=== PATIENT | female | born 1945 | race Caucasian/White ===

== ENCOUNTER 2018-11-12 16:49 | Inpatient (IN) | payer MEDICARE, OTHER ==
[2018-11-12 18:21] LABS: % EOSINOPHILS 2.6 % (0.0-5.0); % LYMPHOCYTES 24.3 % (20.0-50.0); % MONOCYTES 7.9 % (2.0-10.0); % NEUTROPHILS 65.2 % (40.0-80.0); EOSINOPHILE ABSOLUTE 0.2 Th/cmm (0.1-0.4); HEMATOCRIT 37.5 % (41.0-60); HEMOGLOBIN 12.2 gm/dL (12-16); LYMPHOCYTE ABSOLUTE 1.6 Th/cmm (1.5-3.0); MEAN CELL VOLUME 93.3 fl (81-100); MEAN CORPUSCULAR HEMOGLOBIN 30.4 pg (27.0-31.0); MEAN CORPUSCULAR HGB CONC 32.6 pg (28.0-36.0); MEAN PLATELET VOLUME 7.5 fl; MONOCYTE ABSOLUTE 0.5 Th/cmm (0.3-1.0); NEUTROPHILE ABSOLUTE 4.3 Th/cmm (1.8-8.0); PLATELET COUNT 353 Th/cmm (150-400); RED BLOOD COUNT 4.02 Mil/cmm (3.80-5.20); RED CELL DISTRIBUTION WIDTH 13.2 % (11.5-20.0); WHITE BLOOD COUNT 6.6 Th/cmm (4.8-10.8)
--- NOTE | 2018-11-12 18:25 | ED Physician Chart ---
ED Chief Complaint/HPI - Patient Information Date Seen:: 11/12/18 Time Seen:: 17:30 Chief Complaint:: striking out Allergies:: Allergies Allergy/AdvReac Type Severity Reaction Status Date / Time No Known Allergies Allergy Verified 11/12/18 17:18 Vitals:: Vital Signs - 8 hr 11/12/18 17:18 Temp 98.6 F HR 76 RR 16 BP 102/69 O2 Sat % 95 Historian:: Medical Records Review:: Nurse's Note Reviewed, Transfer documents Reviewed ED Review of Systems - Review of Systems General/Constitutional: No fever ED Past Medical History - Past Medical History Past Medical History: PUD/GERD (diarrhea), Arthritis Family Medical History - Family Member Mother History Unknown: Yes ED Physical Exam - Physical Examination General/Constitutional: Non-toxic appearing (combative requiring ativan IM) Head: Atraumatic Eyes: Lids, conjuctiva normal Skin: Nl inspection ENMT: External ears, nose nl Neck: Nontender, No nuchal rigidity Respiratory: Clear to Auscultation Cardio Vascular: RRR GI: No tenderness/rebounding/guarding Extremities: normal strength in all extremities Neuro/Psych: No focal deficits ED Assessment - Assessment General Assessment: psyche break ED Septic Shock - . Is Septic Shock (SBP<90, OR Lactate>4 mmol\L) present?: No - <6hrs of presentation: Vital Signs: Vital Signs - 8 hr 11/12/18 17:18 Temp 98.6 F HR 76 RR 16 BP 102/69 O2 Sat % 95 ED Reassessment (Disposition) - Patient Disposition Discharge/Transfer:: Acute Care w/in this hosp (admitted for psy eval and management)
[2018-11-12 18:35] LABS: ALB/GLOB RATIO 1.2 (1.0-1.8); ALBUMIN 3.7 gm/dL (3.7-5.3); ALKALINE PHOSPHATASE 41 U/L (34-104); ANION GAP 12.3 (7.0-16.0); BILIRUBIN,TOTAL 0.2 mg/dL (0.3-1.0); BUN - UREA NITROGEN 27 mg/dL (7-25); CALCIUM SERUM 9.3 mg/dL (8.6-10.3); CARBON DIOXIDE 24.8 mEq/L (21.0-31.0); CHLORIDE 105 mEq/L (98-107); CREATININE - SERUM 0.7 mg/dL (0.6-1.2); GLUCOSE 122 mg/dL (70-105); POTASSIUM SERUM 4.1 mEq/L (3.5-5.1); SGOT 15 U/L (13-39); SGPT/ALT 13 U/L (7-52); SODIUM SERUM 138 mEq/L (136-145); TOTAL PROTEIN,SERUM 6.7 gm/dL (6.0-8.3)
[2018-11-12 20:33] VITALS: BP 107/58
[2018-11-12] MEDS ORDERED: Magnesium Hydroxide (MOM) 30 mL UDC PO PRN (20:43)
[2018-11-12] MEDS ORDERED: Maalox 30 mL Cup PO PRN (20:43)
[2018-11-12] MEDS: Acetaminophen 500 MG TAB PO SCH (23:05)
[2018-11-13] MEDS ORDERED: MELATONIN PO SCH (09:00)
[2018-11-13] MEDS ORDERED: PYRIDOXINE HCL PO SCH (09:00)
[2018-11-13] MEDS: Multivitamin Tab PO SCH (09:07)
[2018-11-13] MEDS: Acetaminophen 500 MG TAB PO SCH ×3 (09:08→21:08)
[2018-11-13 09:13] LABS: CHOLESTEROL 200 mg/dL (<200); HDL -HIGH DENSITY LIPOPROTEIN 51 mg/dL (23-92); TRIGLYCERIDES 71 mg/dL (<150)
--- NOTE | 2018-11-13 11:10 | History and Physical ---
History of Present Illness - HPI Chief Complaint: 73 y/o female patient was brought into ER due to Striking out. HPI: 73 y/o female patient was admitted into [facility] due to Striking out. Patient has history of PUD,GERD and Arthritis. Patient had an ER assessment and a complete workup was done. Patient was diagnosed with Acute Psychosis. Patient will have a Psych evaluation and management. I will follow patient, treat and monitor patient. Patient will continue present treatment plan as ordered. Vital Signs: Last Vital Signs Temp 98.8 F 11/13/18 06:39 Pulse 72 11/13/18 06:39 Resp 19 11/13/18 08:00 BP 110/62 11/13/18 06:39 Pulse Ox 96 11/13/18 06:39 Past Medical History Cardiovascular: Report: No Pertinent Hx Pulmonary: Report: No Pertinent Hx DRAG OUT MAN: Report: Other (Acute psychosis-striking out.) GI: Report: GERD, Peptic Ulcer Psych: Report: Psychosis Musculoskeletal: Report: Other (Arthritis.) Rheumatologic: Report: No pertinent Hx Infectious Disease: Report: No Pertinent Hx Family Medical History - Family Member Mother History Unknown: Yes Social History Smoke: No Alcohol: None Drugs: None Lives: Jail Domestic Violence: Negative Health Maintenance Health Maintenance: Other (see chart.) - Medications Home Medications: Home Medication Medication Instructions Recorded Type Acetaminophen [Pain Relief] 500 mg PO TID 11/12/18 History Divalproex Sodium [Depakote] 125 mg PO BID 11/12/18 History Loperamide [Imodium] 2 mg PO DAILY PRN 11/12/18 History Melatonin/Pyridoxine HCl (B6) 1 each PO BID 11/12/18 History [Melatonin 5 mg Tablet] OLANZapine [ZyPREXA] 5 mg PO BID 11/12/18 History Trazodone HCl 50 mg PO HS 11/12/18 History Other Medications: Please see medication reconciliation sheet. - Allergies Allergies/Adverse Reactions: Allergies Allergy/AdvReac Type Severity Reaction Status Date / Time No Known Allergies Allergy Verified 11/12/18 17:18 Review of Systems - Review of Systems Review of Systems: 73 y/o female patient has been striking out. patient has hx of Gerd/PUD and Arthritis. Constitutional: Report: No Significant Eyes: Report: No Significant ENT: Report: No Significant Respiratory: Report: No Significant Cardiovascular: Report: No Significant Gastrointestinal: Report: Other (GERD/PUD.) Genitourinary: Report: No Significant Musculoskeletal: Report: Other (Arthritis.) Neurological: Report: No Significant Physical Exam - Physical Exam HEENT: Report: Ears Nose Throat within normal limits Neck: Report: Within normal limits Cardiovascular Systems: Report: +s1/s2 noted, Regular, Rate and Rhythm Respiratory: Report: Breath Sounds are within normal limits Abdomen: Report: Non-tender to palpation Back: Report: Inspection of back is within normal limits. Extremities: Report: Non-tender to palpation. Skin: Report: Color of skin is within normal limits Neuro/Psych: Report: Other (Striking out.) - Lab Results All Lab Results last 24 hours: Laboratory Results - last 24 hr 11/12/18 11/12/18 11/13/18 18:15 18:15 08:15 WBC 6.6 RBC 4.02 Hgb 12.2 Hct 37.5 L MCV 93.3 MCH 30.4 MCHC Differential 32.6 RDW 13.2 Plt Count 353 MPV 7.5 Neutrophils % 65.2 Lymphocytes % 24.3 Monocytes % 7.9 Eosinophils % 2.6 Basophils % 0.0 Sodium 138 Potassium 4.1 Chloride 105 Carbon Dioxide 24.8 Anion Gap 12.3 BUN 27 H Creatinine 0.7 Est GFR ( Amer) TNP Est GFR (Non-Af Amer) TNP BUN/Creatinine Ratio 38.6 Glucose 122 H Calcium 9.3 Total Bilirubin 0.2 L AST 15 ALT 13 Alkaline Phosphatase 41 Total Protein 6.7 Albumin 3.7 Globulin 3.0 Albumin/Globulin Ratio 1.2 Triglycerides 71 Cholesterol 200 LDL Cholesterol Direct 143 HDL Cholesterol 51 Valproic Acid 11/13/18 08:15 WBC RBC Hgb Hct MCV MCH MCHC Differential RDW Plt Count MPV Neutrophils % Lymphocytes % Monocytes % Eosinophils % Basophils % Sodium Potassium Chloride Carbon Dioxide Anion Gap BUN Creatinine Est GFR ( Amer) Est GFR (Non-Af Amer) BUN/Creatinine Ratio Glucose Calcium Total Bilirubin AST ALT Alkaline Phosphatase Total Protein Albumin Globulin Albumin/Globulin Ratio Triglycerides Cholesterol LDL Cholesterol Direct HDL Cholesterol Valproic Acid 19.8 L - Assessment Assessment: PUD. GERD. Arthritis. Acute Psychosis. - Plan Plan: Plan Continuation of care. Psych eval/management requested. Monitor Labs. Continue present meds as directed. Monitor Diet/Nutritional support. Pain Management. Safety precaution. Supportive care. Fall precaution. Will Monitor patient and continue current treatment plan as ordered.
--- NOTE | 2018-11-14 09:39 | Psychiatric Evaluation ---
DATE OF SERVICE: 11/12/2018 AGE: 73. SEX: Female. PHYSICIAN: Dr. Calderon. CHIEF COMPLAINT: Agitation and striking out behavior. HISTORY OF PRESENT ILLNESS: The patient is a 73-year-old female with history of what seems to be bipolar disorder. [facility]. The patient has been combative and has been agitated and striking out at peers and staff in the long-term. She also has been confused. The patient also has been preoccupied. The patient was transferred to the hospital. The patient is still confused and agitated. She is also easily irritable and angry. She also restless and she needed lots of redirections. PAST PSYCHIATRIC HISTORY: The patient has history of what seems to be bipolar disorder. PAST MEDICAL HISTORY: The patient has arthritis and gastroesophageal reflux disease. SOCIAL HISTORY: The patient lives in [facility]. The patient denies any alcohol or any street drug use. ALLERGIES: No known allergies. MENTAL STATUS EXAMINATION: The patient appears her stated age. Anxious. Sad affect. In a depressed mood. Thought processes mainly goal directed. The patient denies hallucinations or delusions and she denies any thoughts of suicide or homicide. The patient is alert and oriented to the situation and place and person. Impaired immediate and recent, but intact remote memories and she remembered her date. Poor insight and poor judgment. ASSESSMENT: PRIMARY DIAGNOSES: Bipolar disorder, manic episode, severe, with psychotic features. TREATMENT PLAN: Continue to monitor her behavior and condition closely. Also, we will start individual psychotherapy. Also, we will monitor psychotropic medications. Also, we will get Depakote blood level. ESTIMATED LENGTH OF STAY: 5-7 days. THE PATIENT'S STRENGTHS AND WEAKNESSES: The patient strength is not clear at this time. Weaknesses is ineffective coping and her agitation and poor impulse control. AFTER DISCHARGE PLAN: Outpatient treatment and followup will continue as an outpatient. CRITERIA FOR DISCHARGE: The patient will not be psychotic and will stabilize psychotropic medications and will establish outpatient treatment plans. [facility]# [id number]
[2018-11-14] MEDS: Acetaminophen 500 MG TAB PO SCH ×3 (09:52→21:25)
[2018-11-14] MEDS: Multivitamin Tab PO SCH (09:55)
--- NOTE | 2018-11-14 21:11 | Progress Notes ---
DATE: SUBJECTIVE: Chart reviewed and the patient interviewed. Also discussed the patient's condition with the staff and reviewed records and labs. The patient is still confused and is still easily agitated and needs lots of redirections. She also is restless and she is trying to get out of bed, in spite of staff instructions and directions to stay in bed. The patient also is still in angry mood and also seems to be actively responding to stimuli. Otherwise, the patient is compliant with taking Zyprexa and no side effects of Zyprexa. ASSESSMENT: The patient is still agitated and needs close monitoring. TREATMENT PLAN: Continue monitoring her behavior and her condition closely and continue adjusting psychotropic medications and work on behavioral modification. [facility]# [id number]
[2018-11-15] MEDS: Acetaminophen 500 MG TAB PO SCH ×3 (08:38→21:14)
[2018-11-15] MEDS: Multivitamin Tab PO SCH (08:38)
--- NOTE | 2018-11-15 14:50 | Internal Medicine Prog Note ---
Internal Medicine Subjective - Subjective Service Date: 11/15/18 Patient seen and examined:: with staff Patient is:: awake, verbal, agitated Patient Complaints of:: other (Aggressive.) Per staff patient has:: no adverse event, no episodes of fall Internal Medicine Objective - Results Result Diagrams: 11/12/18 18:15 11/12/18 18:15 Recent Labs: Laboratory Last Values WBC 6.6 Th/cmm (4.8-10.8) 11/12/18 18:15 RBC 4.02 Mil/cmm (3.80-5.20) 11/12/18 18:15 Hgb 12.2 gm/dL (12-16) 11/12/18 18:15 Hct 37.5 % (41.0-60) L 11/12/18 18:15 MCV 93.3 fl (81-100) 11/12/18 18:15 MCH 30.4 pg (27.0-31.0) 11/12/18 18:15 MCHC Differential 32.6 pg (28.0-36.0) 11/12/18 18:15 RDW 13.2 % (11.5-20.0) 11/12/18 18:15 Plt Count 353 Th/cmm (150-400) 11/12/18 18:15 MPV 7.5 fl 11/12/18 18:15 Neutrophils % 65.2 % (40.0-80.0) 11/12/18 18:15 Lymphocytes % 24.3 % (20.0-50.0) 11/12/18 18:15 Monocytes % 7.9 % (2.0-10.0) 11/12/18 18:15 Eosinophils % 2.6 % (0.0-5.0) 11/12/18 18:15 Basophils % 0.0 % (0.0-2.0) 11/12/18 18:15 Sodium 138 mEq/L (136-145) 11/12/18 18:15 Potassium 4.1 mEq/L (3.5-5.1) 11/12/18 18:15 Chloride 105 mEq/L (98-107) 11/12/18 18:15 Carbon Dioxide 24.8 mEq/L (21.0-31.0) 11/12/18 18:15 Anion Gap 12.3 (7.0-16.0) 11/12/18 18:15 BUN 27 mg/dL (7-25) H 11/12/18 18:15 Creatinine 0.7 mg/dL (0.6-1.2) 11/12/18 18:15 Est GFR ( Amer) TNP 11/12/18 18:15 Est GFR (Non-Af Amer) TNP 11/12/18 18:15 BUN/Creatinine Ratio 38.6 11/12/18 18:15 Glucose 122 mg/dL (70-105) H 11/12/18 18:15 Calcium 9.3 mg/dL (8.6-10.3) 11/12/18 18:15 Total Bilirubin 0.2 mg/dL (0.3-1.0) L 11/12/18 18:15 AST 15 U/L (13-39) 11/12/18 18:15 ALT 13 U/L (7-52) 11/12/18 18:15 Alkaline Phosphatase 41 U/L (34-104) 11/12/18 18:15 Total Protein 6.7 gm/dL (6.0-8.3) 11/12/18 18:15 Albumin 3.7 gm/dL (3.7-5.3) 11/12/18 18:15 Globulin 3.0 gm/dL 11/12/18 18:15 Albumin/Globulin Ratio 1.2 (1.0-1.8) 11/12/18 18:15 Triglycerides 71 mg/dL (<150) 11/13/18 08:15 Cholesterol 200 mg/dL (<200) 11/13/18 08:15 LDL Cholesterol Direct 143 mg/dL (75-193) 11/13/18 08:15 HDL Cholesterol 51 mg/dL (23-92) 11/13/18 08:15 Valproic Acid 19.8 ug/mL (50.0-100.0) L 11/13/18 08:15 - Physical Exam Vitals and I&O: Vital Signs Temp 97.6 F 11/14/18 14:00 Pulse 88 11/14/18 14:00 Resp 18 11/14/18 14:00 BP 158/74 11/14/18 14:00 Pulse Ox 96 11/14/18 14:00 Intake & Output 05/03/2711/15/18 11/15/18 18:59 06:59 18:59 Intake Total 800 60 Balance 800 60 Intake: Oral 800 60 Other: # Voids 4 3 # Bowel Movements 1 Active Medications: Current Medications Acetaminophen (Tylenol Extra Strength) 500 mg PO TID STEVENSON Stop: 01/11/19 20:59 Last Admin: 11/15/18 13:53 Dose: 500 mg Al Hydrox/Mg Hydrox/Simethicone (Maalox) 30 ml PO Q4HR PRN PRN Reason: GI DISTRESS Stop: 01/11/19 20:42 Divalproex Sodium (Depakote Dr) 125 mg PO BID STEVENSON; Protocol Stop: 01/12/19 08:59 Last Admin: 11/15/18 08:38 Dose: 125 mg Loperamide HCl (Imodium) 2 mg PO DAILY PRN PRN Reason: Diarrhea Stop: 01/11/19 20:54 Lorazepam (Ativan) 0.5 mg PO Q4HR PRN; Protocol PRN Reason: Anxiety Stop: 12/12/18 20:42 Magnesium Hydroxide (Milk Of Magnesia) 30 ml PO HS PRN PRN Reason: Constipation Multivitamins/Vitamin C (Theragran) 1 tab PO DAILY STEVENSON Stop: 01/12/19 08:59 Last Admin: 11/15/18 08:38 Dose: 1 tab Olanzapine (Zyprexa) 5 mg PO BID STEVENSON; Protocol Stop: 01/12/19 08:59 Last Admin: 11/15/18 08:38 Dose: 5 mg Trazodone HCl (Desyrel) 50 mg PO HS STEVENSON; Protocol Stop: 01/11/19 20:59 Last Admin: 11/14/18 21:26 Dose: 50 mg Zolpidem Tartrate (Ambien) 5 mg PO HS PRN PRN Reason: Insomnia Stop: 01/11/19 20:42 Physical Exam: 73 y/ patient continues to be aggressive and confused. General: demented, other (confused.) HEENT: NC/AT Neck: Supple Lungs: CTAB Cardiovascular: RRR, Normal S1 Abdomen: soft, non-tender Extremities: clear Neurological: no change Internal Medicine Assmt/Plan - Assessment Assessment: PUD. GERD. Arthritis. Aggressive. Acute Psychosis. - Plan Plan: Plan Continuation of care. Psych management. Monitor Labs. Continue present meds as directed. Monitor Diet/Nutritional support. Pain Management. Safety precaution. Supportive care. Fall precaution. Will Monitor patient and continue current treatment plan as ordered. Nutritional Asmnt/Malnutr-PDOC - Dietary Evaluation Malnutrition Findings (Please click <Entered> for more info): see orders.
--- NOTE | 2018-11-15 22:26 | Progress Notes ---
DATE: 11/15/2018 SUBJECTIVE: Chart was reviewed and the patient interviewed. Also discussed the patient's condition with the staff and reviewed records and labs. The patient is still confused and forgetful. The patient also is easily agitated and easily irritable. The patient also is trying to get out of a truck and exposing herself to dangerous situation and dangers of fall. The patient also still seems to be responding and talking to self. Otherwise, the patient is compliant with taking her medications with no side effects of medications. ASSESSMENT: The patient is still agitated and still can be dangerous to others. TREATMENT PLAN: Continue to monitor her behavior and her condition closely. Also, Depakote blood level that was done upon admission was 19.8, which is below therapeutic level. We will continue same dose and continue to work on her irritability and agitation and continue to follow up. JOB# [id number]
[2018-11-16] MEDS: Acetaminophen 500 MG TAB PO SCH ×3 (08:42→20:46)
[2018-11-16] MEDS: Multivitamin Tab PO SCH (08:43)
--- NOTE | 2018-11-17 02:08 | Progress Notes ---
DATE: 11/16/2018 SUBJECTIVE: Chart was reviewed and the patient interviewed. Also discussed the patient's condition with the staff and reviewed records and labs. The patient is still confused and is still forgetful. The patient also is selectively mute. The patient also is still easily irritable and easily minimizing her treatment. She also is still having mood swings and irritability. Otherwise, the patient continued to need redirections. Depakote blood level that was done on 11/13/2018 came back to be 19.8. ASSESSMENT: The patient is still psychotic and confused. TREATMENT PLAN: Continue to monitor her behavior and condition closely. Also, continue Depakote 125 twice a day and Zyprexa 5 mg twice a day and add trazodone 50 mg at bedtime. Also, continue to monitor Depakote blood level and blood level that was done on 11/13/2018 came back to be 19.8, which is below therapeutic level but will repeat blood level. JOB# [id number]
[2018-11-17] MEDS: Multivitamin Tab PO SCH (09:40)
[2018-11-17] MEDS: Acetaminophen 500 MG TAB PO SCH ×3 (09:40→21:38)
--- NOTE | 2018-11-17 10:06 | Internal Medicine Prog Note ---
Internal Medicine Subjective - Subjective Patient seen and examined:: chart reviewed Patient is:: awake, verbal, agitated, other (pt still psychotic and confused ) Patient Complaints of:: other (Aggressive.) Per staff patient has:: no adverse event, no episodes of fall Internal Medicine Objective - Results Result Diagrams: 11/12/18 18:15 11/12/18 18:15 Recent Labs: Laboratory Last Values WBC 6.6 Th/cmm (4.8-10.8) 11/12/18 18:15 RBC 4.02 Mil/cmm (3.80-5.20) 11/12/18 18:15 Hgb 12.2 gm/dL (12-16) 11/12/18 18:15 Hct 37.5 % (41.0-60) L 11/12/18 18:15 MCV 93.3 fl (81-100) 11/12/18 18:15 MCH 30.4 pg (27.0-31.0) 11/12/18 18:15 MCHC Differential 32.6 pg (28.0-36.0) 11/12/18 18:15 RDW 13.2 % (11.5-20.0) 11/12/18 18:15 Plt Count 353 Th/cmm (150-400) 11/12/18 18:15 MPV 7.5 fl 11/12/18 18:15 Neutrophils % 65.2 % (40.0-80.0) 11/12/18 18:15 Lymphocytes % 24.3 % (20.0-50.0) 11/12/18 18:15 Monocytes % 7.9 % (2.0-10.0) 11/12/18 18:15 Eosinophils % 2.6 % (0.0-5.0) 11/12/18 18:15 Basophils % 0.0 % (0.0-2.0) 11/12/18 18:15 Sodium 138 mEq/L (136-145) 11/12/18 18:15 Potassium 4.1 mEq/L (3.5-5.1) 11/12/18 18:15 Chloride 105 mEq/L (98-107) 11/12/18 18:15 Carbon Dioxide 24.8 mEq/L (21.0-31.0) 11/12/18 18:15 Anion Gap 12.3 (7.0-16.0) 11/12/18 18:15 BUN 27 mg/dL (7-25) H 11/12/18 18:15 Creatinine 0.7 mg/dL (0.6-1.2) 11/12/18 18:15 Est GFR ( Amer) TNP 11/12/18 18:15 Est GFR (Non-Af Amer) TNP 11/12/18 18:15 BUN/Creatinine Ratio 38.6 11/12/18 18:15 Glucose 122 mg/dL (70-105) H 11/12/18 18:15 Calcium 9.3 mg/dL (8.6-10.3) 11/12/18 18:15 Total Bilirubin 0.2 mg/dL (0.3-1.0) L 11/12/18 18:15 AST 15 U/L (13-39) 11/12/18 18:15 ALT 13 U/L (7-52) 11/12/18 18:15 Alkaline Phosphatase 41 U/L (34-104) 11/12/18 18:15 Total Protein 6.7 gm/dL (6.0-8.3) 11/12/18 18:15 Albumin 3.7 gm/dL (3.7-5.3) 11/12/18 18:15 Globulin 3.0 gm/dL 11/12/18 18:15 Albumin/Globulin Ratio 1.2 (1.0-1.8) 11/12/18 18:15 Triglycerides 71 mg/dL (<150) 11/13/18 08:15 Cholesterol 200 mg/dL (<200) 11/13/18 08:15 LDL Cholesterol Direct 143 mg/dL (75-193) 11/13/18 08:15 HDL Cholesterol 51 mg/dL (23-92) 11/13/18 08:15 Valproic Acid 19.8 ug/mL (50.0-100.0) L 11/13/18 08:15 - Physical Exam Vitals and I&O: Vital Signs Temp 97.8 F 11/17/18 05:58 Pulse 77 11/17/18 05:58 Resp 18 11/16/18 20:00 BP 136/75 11/17/18 05:58 Pulse Ox 18 11/17/18 05:58 Active Medications: Current Medications Acetaminophen (Tylenol Extra Strength) 500 mg PO TID STEVENSON Stop: 01/11/19 20:59 Last Admin: 11/17/18 09:40 Dose: 500 mg Al Hydrox/Mg Hydrox/Simethicone (Maalox) 30 ml PO Q4HR PRN PRN Reason: GI DISTRESS Stop: 01/11/19 20:42 Divalproex Sodium (Depakote Dr) 125 mg PO BID STEVENSON; Protocol Stop: 01/12/19 08:59 Last Admin: 11/17/18 09:40 Dose: 125 mg Loperamide HCl (Imodium) 2 mg PO DAILY PRN PRN Reason: Diarrhea Stop: 01/11/19 20:54 Lorazepam (Ativan) 0.5 mg PO Q4HR PRN; Protocol PRN Reason: Anxiety Stop: 12/12/18 20:42 Last Admin: 11/17/18 09:41 Dose: 0.5 mg Magnesium Hydroxide (Milk Of Magnesia) 30 ml PO HS PRN PRN Reason: Constipation Multivitamins/Vitamin C (Theragran) 1 tab PO DAILY STEVENSON Stop: 01/12/19 08:59 Last Admin: 11/17/18 09:40 Dose: 1 tab Olanzapine (Zyprexa) 5 mg PO BID [facility]; Protocol Stop: 01/12/19 08:59 Last Admin: 11/17/18 09:41 Dose: 5 mg Trazodone HCl (Desyrel) 50 mg PO HS STEVENSON; Protocol Stop: 01/11/19 20:59 Last Admin: 11/16/18 20:47 Dose: 50 mg Zolpidem Tartrate (Ambien) 5 mg PO HS PRN PRN Reason: Insomnia Stop: 01/11/19 20:42 Last Admin: 11/16/18 20:47 Dose: 5 mg Physical Exam: 73 y/ patient continues to be aggressive and confused. General: demented, other (confused.) HEENT: NC/AT Neck: Supple Lungs: CTAB Cardiovascular: RRR, Normal S1 Abdomen: soft, non-tender Extremities: clear Neurological: no change Internal Medicine Assmt/Plan - Assessment Assessment: PUD. GERD. Arthritis. Aggressive. Acute Psychosis. - Plan Plan: Plan Continuation of care. Psych management. Monitor Labs. Continue present meds as directed. Monitor Diet/Nutritional support. Pain Management. Safety precaution. Supportive care. Fall precaution. Will Monitor patient and continue current treatment plan as ordered. Nutritional Asmnt/Malnutr-PDOC - Dietary Evaluation Malnutrition Findings (Please click <Entered> for more info): Nutritional Asmnt/Malnutrition Start: 11/16/18 10: 39 Text: Status: Complete Freq: Protocol: Document 11/16/18 10:39 MICHELL (Rec: 11/16/18 10:45 MICHELL JENKINS- [email or web address]) Nutritional Asmnt/Malnutrition Patient General Information Nutritional Screening Moderate Risk Diagnosis Agitation Pertinent Medical Hx/Surgical Hx PUD, GERD, arthritis Subjective Information Per nursing notes, patient selectively mute, anxious, easily agitated. Current Diet Order/ Nutrition Support Pureed Patient / S.O Not Indicated Pertinent Medications maalox, imodium, MOM, Theragran Pertinent Labs (11/12) BUN 27 Nutritional Hx/Data Height 1.68 m Height (Calculated Centimeters) 167.6 Current Weight (lbs) 65.771 kg Weight (Calculated Kilograms) 65.8 Weight (Calculated Grams) 75965.9 [place] Body Weight 130 % [place] Body Weight 111 Body Mass Index (BMI) 23.3 Recent Weight Change No Weight Status Approriate GI Symptoms GI Symptoms Nausea Last BM 11/15 x 1 Difficult in: None Food Allergies No Cultural/Ethnic/Yarsanism Belief none indicated Usual diet at home uknown Skin Integrity/Comment: Earl 17, Intact Current %PO Good (75-100%) Estimated Nutritional Goals BEE in Kcals: Using Current wt Calories/Kcals/Kg 65.9 kg CBW 25-30 kcal/kg Kcals Calculated ~1882-0558 kcal/day Protein: Using Current wt Protein g/k.8-1 gm/kg Protein Calculated ~50-65 gm/day Fluid: ml ~5832-6386 ml/day (1 ml/kcal) Nutritional Problem 1. Problem Problem No nutrition diagnosis at this time Intervention/Recommendation Comments 1. Continue pureed diet as tolerated by patient Expected Outcomes/Goals Expected Outcomes/Goals Oral intake >75% of meals, weight stable, nutrition related labs WNL F/U LR 11/23
--- NOTE | 2018-11-17 23:34 | Progress Notes ---
DATE: SUBJECTIVE: Chart reviewed and the patient interviewed. Also discussed the patient's condition with the staff and reviewed records and labs. The patient is still confused and she is still easily agitated. The patient also still have episodes of hitting herself during self-care. Also, she is still unable to carry on coherent conversation and is still forgetful and rambling. Otherwise, the patient continued to take Depakote with no side effects. ASSESSMENT: The patient is still agitated and confused. TREATMENT PLAN: Continue to monitor her behavior and her condition closely. Also, continue adjusting psychotropic medications and work on behavioral modification. [facility]# [id number]
[2018-11-18] MEDS: Acetaminophen 500 MG TAB PO SCH ×2 (08:16→13:40)
[2018-11-18] MEDS: Multivitamin Tab PO SCH (08:18)
--- NOTE | 2018-11-18 12:30 | Internal Medicine Prog Note ---
Internal Medicine Subjective - Subjective Service Date: 11/18/18 Patient seen and examined:: with staff Patient is:: awake, verbal, agitated, other (pt. is psychotic, easily agitated.) Patient Complaints of:: other (still Aggressive.) Per staff patient has:: no adverse event, no episodes of fall Internal Medicine Objective - Results Result Diagrams: 11/12/18 18:15 11/12/18 18:15 Recent Labs: Laboratory Last Values WBC 6.6 Th/cmm (4.8-10.8) 11/12/18 18:15 RBC 4.02 Mil/cmm (3.80-5.20) 11/12/18 18:15 Hgb 12.2 gm/dL (12-16) 11/12/18 18:15 Hct 37.5 % (41.0-60) L 11/12/18 18:15 MCV 93.3 fl (81-100) 11/12/18 18:15 MCH 30.4 pg (27.0-31.0) 11/12/18 18:15 MCHC Differential 32.6 pg (28.0-36.0) 11/12/18 18:15 RDW 13.2 % (11.5-20.0) 11/12/18 18:15 Plt Count 353 Th/cmm (150-400) 11/12/18 18:15 MPV 7.5 fl 11/12/18 18:15 Neutrophils % 65.2 % (40.0-80.0) 11/12/18 18:15 Lymphocytes % 24.3 % (20.0-50.0) 11/12/18 18:15 Monocytes % 7.9 % (2.0-10.0) 11/12/18 18:15 Eosinophils % 2.6 % (0.0-5.0) 11/12/18 18:15 Basophils % 0.0 % (0.0-2.0) 11/12/18 18:15 Sodium 138 mEq/L (136-145) 11/12/18 18:15 Potassium 4.1 mEq/L (3.5-5.1) 11/12/18 18:15 Chloride 105 mEq/L (98-107) 11/12/18 18:15 Carbon Dioxide 24.8 mEq/L (21.0-31.0) 11/12/18 18:15 Anion Gap 12.3 (7.0-16.0) 11/12/18 18:15 BUN 27 mg/dL (7-25) H 11/12/18 18:15 Creatinine 0.7 mg/dL (0.6-1.2) 11/12/18 18:15 Est GFR ( Amer) TNP 11/12/18 18:15 Est GFR (Non-Af Amer) TNP 11/12/18 18:15 BUN/Creatinine Ratio 38.6 11/12/18 18:15 Glucose 122 mg/dL (70-105) H 11/12/18 18:15 Calcium 9.3 mg/dL (8.6-10.3) 11/12/18 18:15 Total Bilirubin 0.2 mg/dL (0.3-1.0) L 11/12/18 18:15 AST 15 U/L (13-39) 11/12/18 18:15 ALT 13 U/L (7-52) 11/12/18 18:15 Alkaline Phosphatase 41 U/L (34-104) 11/12/18 18:15 Total Protein 6.7 gm/dL (6.0-8.3) 11/12/18 18:15 Albumin 3.7 gm/dL (3.7-5.3) 11/12/18 18:15 Globulin 3.0 gm/dL 11/12/18 18:15 Albumin/Globulin Ratio 1.2 (1.0-1.8) 11/12/18 18:15 Triglycerides 71 mg/dL (<150) 11/13/18 08:15 Cholesterol 200 mg/dL (<200) 11/13/18 08:15 LDL Cholesterol Direct 143 mg/dL (75-193) 11/13/18 08:15 HDL Cholesterol 51 mg/dL (23-92) 11/13/18 08:15 Valproic Acid 19.8 ug/mL (50.0-100.0) L 11/13/18 08:15 - Physical Exam Vitals and I&O: Vital Signs Temp 98 F 11/18/18 06:05 Pulse 94 11/18/18 06:05 Resp 19 11/18/18 06:05 BP 96/60 11/18/18 06:05 Pulse Ox 97 11/18/18 06:05 Intake & Output 11/17/18 11/18/18 11/18/18 18:59 06:59 18:59 Intake Total 120 Balance 120 Intake: Oral 120 Other: # Voids 3 # Bowel Movements 0 Active Medications: Current Medications Acetaminophen (Tylenol Extra Strength) 500 mg PO TID [facility] Stop: 01/11/19 20:59 Last Admin: 11/18/18 08:16 Dose: 500 mg Al Hydrox/Mg Hydrox/Simethicone (Maalox) 30 ml PO Q4HR PRN PRN Reason: GI DISTRESS Stop: 01/11/19 20:42 Divalproex Sodium (Depakote Dr) 125 mg PO BID [facility]; Protocol Stop: 01/12/19 08:59 Last Admin: 11/18/18 08:16 Dose: 125 mg Loperamide HCl (Imodium) 2 mg PO DAILY PRN PRN Reason: Diarrhea Stop: 01/11/19 20:54 Lorazepam (Ativan) 0.5 mg PO Q4HR PRN; Protocol PRN Reason: Anxiety Stop: 12/12/18 20:42 Last Admin: 11/17/18 17:07 Dose: 0.5 mg Magnesium Hydroxide (Milk Of Magnesia) 30 ml PO HS PRN PRN Reason: Constipation Multivitamins/Vitamin C (Theragran) 1 tab PO DAILY [facility] Stop: 01/12/19 08:59 Last Admin: 11/18/18 08:18 Dose: 1 tab Olanzapine (Zyprexa) 5 mg PO BID [facility]; Protocol Stop: 01/12/19 08:59 Last Admin: 11/18/18 08:18 Dose: 5 mg Trazodone HCl (Desyrel) 50 mg PO HS [facility]; Protocol Stop: 01/11/19 20:59 Last Admin: 11/17/18 21:31 Dose: 50 mg Zolpidem Tartrate (Ambien) 5 mg PO HS PRN PRN Reason: Insomnia Stop: 01/11/19 20:42 Last Admin: 11/16/18 20:47 Dose: 5 mg Physical Exam: 73 y/o patient continues to be aggressive and be very confused. General: demented, other (confused.) HEENT: NC/AT Neck: Supple Lungs: CTAB Cardiovascular: RRR, Normal S1 Abdomen: soft, non-tender Extremities: clear Neurological: no change Internal Medicine Assmt/Plan - Assessment Assessment: PUD. GERD. Arthritis. Aggressive. Acute Psychosis. - Plan Plan: Continuation of care. Psych management. Monitor Labs. Continue present meds as directed. Monitor Diet/Nutritional support. Pain Management. Safety precaution. Supportive care. Fall precaution. Will Monitor patient and continue current treatment plan as ordered. Nutritional Asmnt/Malnutr-PDOC - Dietary Evaluation Malnutrition Findings (Please click <Entered> for more info): Nutritional Asmnt/Malnutrition Start: 11/16/18 10: 39 Text: Status: Complete Freq: Protocol: Document 11/16/18 10:39 [email or web address] (Rec: 11/16/18 10:45 [email or web address] JENKINS- [email or web address]) Nutritional Asmnt/Malnutrition Patient General Information Nutritional Screening Moderate Risk Diagnosis Agitation Pertinent Medical Hx/Surgical Hx PUD, GERD, arthritis Subjective Information Per nursing notes, patient selectively mute, anxious, easily agitated. Current Diet Order/ Nutrition Support Pureed Patient / S.O Not Indicated Pertinent Medications maalox, imodium, MOM, Theragran Pertinent Labs (11/12) BUN 27 Nutritional Hx/Data Height 1.68 m Height (Calculated Centimeters) 167.6 Current Weight (lbs) 65.771 kg Weight (Calculated Kilograms) 65.8 Weight (Calculated Grams) 28213.9 [place] Body Weight 130 % [place] Body Weight 111 Body Mass Index (BMI) 23.3 Recent Weight Change No Weight Status Approriate GI Symptoms GI Symptoms Nausea Last BM 11/15 x 1 Difficult in: None Food Allergies No Cultural/Ethnic/Adventist Belief none indicated Usual diet at home uknown Skin Integrity/Comment: Earl 17, Intact Current %PO Good (75-100%) Estimated Nutritional Goals BEE in Kcals: Using Current wt Calories/Kcals/Kg 65.9 kg CBW 25-30 kcal/kg Kcals Calculated ~2523-4423 kcal/day Protein: Using Current wt Protein g/k.8-1 gm/kg Protein Calculated ~50-65 gm/day Fluid: ml ~7331-8519 ml/day (1 ml/kcal) Nutritional Problem 1. Problem Problem No nutrition diagnosis at this time Intervention/Recommendation Comments 1. Continue pureed diet as tolerated by patient Expected Outcomes/Goals Expected Outcomes/Goals Oral intake >75% of meals, weight stable, nutrition related labs WNL F/U LR 11/23
== END 2018-11-18 15:11 | DRG 885 ==
LOC: ER 16:49 → GERO2 18:39
PROVIDERS: ADMIT Psychiatry & Neurology Psychiatry; ATTEND Psychiatry & Neurology Psychiatry
DX: F31.2 Bipolar disorder, current episode manic severe with psychotic features (principal); F23 Brief psychotic disorder; K21.9 Gastro-esophageal reflux disease without esophagitis; M19.90 Unspecified osteoarthritis, unspecified site; K27.9 Peptic ulcer, site unspecified, unspecified as acute or chronic, without hemorrhage or perforation
CPT/HCPCS: 36415-UA; 80053-TC; 80061-TC; 80164-TC; 83036-90; 85025-TC; J2060; Z7610